=== PATIENT | female | born 1965 | race African-American/Black ===

== ENCOUNTER 2018-07-26 10:55 | Emergency (ER) | payer OTHER ==
[~2018-07-26] VITALS: Ht 160 cm; Wt 72.6 kg
[2018-07-26] MEDS ORDERED: DOCUSATE SODIU100 M2 ORAL (11:02)
[2018-07-26] MEDS ORDERED: METOCLOPRA10 MG/10 M ORAL (11:02)
[2018-07-26 11:08] VITALS: BP 117/73
--- NOTE | 2018-07-26 11:08 | NUR ---
ED Nurse Note: Radha walked into ED c/o constipation since . patient states that she just used an enema yesterday and that seemed to work. Patient states she has not been drinking enough water, complains of no pain. patient is alert and oriented x4, ambulatory with a steady gait, VSS
--- NOTE | 2018-07-26 11:29 | Emergency Room Report ---
History of Present Illness General Chief Complaint: General Complaint Source: Patient Present Illness HPI Patient is a 53-year-old female who presented after increased constipation. Patient reports having similar symptoms for several days. Patient not been having any vomiting. She had taken an enema which had some improvement in her symptoms. Patient had multiple episodes in the past of similar symptoms. She denies any fever or weight loss. She denies any focal pain. This is been present for several days. Patient had recently seen her primary care physician was given prescription for Colace as well as Reglan. Allergies: Coded Allergies: No Known Allergies (Unverified , 07/26/18) Patient History Past Medical History: see triage record Reviewed Nursing Documentation: PMH: Agreed; PSxH: Agreed Nursing Documentation-PMH Past Medical History: No Stated History Review of Systems All Other Systems: negative except mentioned in HPI Physical Exam Vital Signs Date Time Temp Pulse Resp B/P (MAP) Pulse Ox O2 Delivery O2 Flow Rate FiO2 07/26/18 10:58 98.2 92 20 117/73 98 Room Air General Appearance: well appearing, no apparent distress, alert, GCS 15 Head: normocephalic, atraumatic ENT: hearing grossly normal, normal voice Neck: full range of motion, supple Respiratory: no respiratory distress, speaking full sentences Cardiovascular #1: normal inspection Gastrointestinal: normal inspection, normal bowel sounds, non tender, soft Neurologic: normal inspection, alert, oriented x3, responsive, normal gait Psychiatric: mood/affect normal Skin: normal inspection, no rash Medical Decision Making Diagnostic Impression: Primary Impression: Nonspecific abdominal pain ER Course .Patient presented for abdominal pain. Differential diagnoses included ischemic bowel, appendicitis, perforated viscus, abdominal aortic aneurysm, inferior myocardial infarction, viral gastroenteritis among others. Patient has a benign exam and does not appear to require any further imaging or laboratory testing at this time. Patient appears to have intermittent episodes of constipation which does not appear to have any need for emergency workup. Patient was advised to follow-up as outpatient for GI evaluation. Patient advised to return if she began having a worsening pain persistent vomiting or other concerns. She is given prescription for lactulose. Last Vital Signs Date Time Temp Pulse Resp B/P (MAP) Pulse Ox O2 Delivery O2 Flow Rate FiO2 07/26/18 10:58 98.2 92 20 117/73 98 Room Air Status: improved Disposition: HOME, SELF-CARE Condition: Stable Scripts Lactulose (LACTULOSE*) 20 Gm/30 Ml Solution 30 ML ORAL THREE TIMES A DAY, #120 ML 0 Refills Prov: Wilfredo Webber MD 07/26/18 Wilfredo Webber MD Jul 26, 2018 11:29
[2018-07-26] MEDS ORDERED: LACTULOSE20 GM/301 ORAL (11:30)
--- NOTE | 2018-07-26 11:52 | NUR ---
ER DISCHARGE NOTE: Patient is cleared to be discharged per ERMD, pt is aox4, on room air, with stable vital signs. pt was given dc and prescription instructions, pt was able to verbalize understanding, pt id band removed without complications. pt is able to ambulate with steady gait. pt took all belongings.
== END 2018-07-26 11:55 | disposition home or self-care (01) ==
LOC: EMR 11:39
DX: R10.9 Unspecified abdominal pain (principal); K59.00 Constipation, unspecified
CPT/HCPCS: 99282